=== PATIENT | female | born 1990 | race African-American/Black ===

== ENCOUNTER 2020-08-12 15:49 | Observation (INO) ==
[2020-08-12] MEDS ORDERED: amLODIPine 5 MG TABLET PO STA (16:35)
[2020-08-12] MEDS ORDERED: ENOXAPARIN 30 MG/0.3 ML SYRINGE SUBCUT STA (18:29)
[2020-08-12] MEDS ORDERED: ENOXAPARIN 120 MG/0.8 ML SYRINGE SUBCUT STA (18:31)
[2020-08-12 19:29] LABS: PT Patient Result 10.9 SECS (9.8-11.9); Partial Thromboplastin Time 25.7 SECS (23.9-33.8)
[2020-08-12] MEDS ORDERED: HEPARIN DRIP 25,000 UNITS/500 ML PREMIX IV SCH (19:30)
[2020-08-12] MEDS ORDERED: MORPHINE 4 MG/1 ML VIAL IV PRN (19:52)
[2020-08-12] MEDS ORDERED: NICOTINE 21 MG/24 HR PATCH TRANSDERM PRN (19:52)
[2020-08-12] MEDS ORDERED: DEXTROSE 50% 25 GM/50 ML VIAL IV PRN ×2 (19:52)
[2020-08-12] MEDS ORDERED: ZALEPLON 5 MG CAPSULE PO PRN (19:52)
[2020-08-12] MEDS ORDERED: diphenhydrAMINE CAP 25 MG CAPSULE PO PRN (19:52)
[2020-08-12] MEDS ORDERED: ACETAMINOPHEN 325 MG TABLET PO PRN (19:52)
[2020-08-12] MEDS ORDERED: ONDANSETRON 4 MG/2 ML VIAL IV PRN (19:52)
[2020-08-12] MEDS ORDERED: hydrALAZINE 20 MG/1 ML VIAL IV PRN (19:52)
[2020-08-12] MEDS ORDERED: SIMETHICONE CHEW 125 MG TABLET PO PRN (19:52)
[2020-08-12] MEDS ORDERED: guaiFENesin/DM ER 600-30 MG TABLET PO PRN (19:52)
[2020-08-12] MEDS ORDERED: BISACODYL 5 MG TABLET PO PRN (19:52)
[2020-08-12] MEDS ORDERED: ALUMINUM/MAGNES/SIMETH MAX STR 30 ML UDCUP PO PRN (19:52)
[2020-08-12] MEDS ORDERED: GLUCAGON 1 MG VIAL IM PRN ×2 (19:52)
[2020-08-12] MEDS: HEPARIN DRIP 25,000 UNITS/500 ML PREMIX IV SCH (22:10)
[2020-08-12] MEDS: INSULIN LISPRO 100 UNIT/ML SUBCUT SCH (22:32)
[2020-08-13] MEDS: ALBUTEROL 2.5 MG/3 ML NEB RESP TX SCH ×4 (02:16→19:15)
[2020-08-13 04:47] LABS: Basophils % 0.4 % (0.0-0.8); Eosinophils # 0.1 10*3/uL (0.0-0.87); Eosinophils % 1.8 % (0.00-10.9); Hematocrit 40.8 VOL% (35.7-47.0); Hemoglobin 13.2 GM/DL (12.0-16.0); Immature Granulocytes % 0.4 %; Immature Granulocytes Absolute 0.03 #; Lymphocytes # 3.3 10*3/uL (1.4-4.0); Lymphocytes % 44.7 % (21.3-54.2); Mean Corpuscular HGB Conc 32.4 GM/DL (32-36); Mean Corpuscular Volume 75.6 FL (87-102); Mean Platelet Volume 10.3 FL (9.6-12.0); Monocytes % 8.9 % (1.7-12.7); Neutrophils % 43.8 % (38.7-73.9); Platelet Count 281 T/CUMM (130-400); White Blood Count 7.4 T/CUMM (4-12)
[2020-08-13 04:59] LABS: INR 1.1; PT Patient Result 11.3 SECS (9.8-11.9); Partial Thromboplastin Time 73.8 SECS (23.9-33.8)
[2020-08-13 05:10] LABS: Calcium 9.4 MG/DL (8.5-10.1); Osmolality,Calculated 273.8 MOS/KG (273-304)
[2020-08-13] MEDS: HEPARIN DRIP 25,000 UNITS/500 ML PREMIX IV SCH ×3 (06:26→23:36)
[2020-08-13 09:29] LABS: Troponin I 0.171 NG/ML (0.00-0.045)
[2020-08-13] MEDS: INSULIN LISPRO 100 UNIT/ML SUBCUT SCH ×4 (10:44→20:26)
[2020-08-13] MEDS: carvediloL 3.125 MG TABLET PO SCH ×2 (10:57→20:25)
[2020-08-13] MEDS: PANTOPRAZOLE 40 MG TABLET PO SCH (10:57)
[2020-08-13] MEDS: lisinopriL 10 MG TABLET PO SCH (10:57)
[2020-08-13 12:07] LABS: Troponin I 0.173 NG/ML (0.00-0.045)
[2020-08-13 14:27] LABS: Troponin I 0.144 NG/ML (0.00-0.045)
[2020-08-14] MEDS: ALBUTEROL 2.5 MG/3 ML NEB RESP TX SCH ×2 (01:31→07:15)
[2020-08-14 04:35] LABS: Basophils % 0.4 % (0.0-0.8); Eosinophils # 0.2 10*3/uL (0.0-0.87); Hematocrit 39.5 VOL% (35.7-47.0); Hemoglobin 12.8 GM/DL (12.0-16.0); Immature Granulocytes % 0.3 %; Immature Granulocytes Absolute 0.02 #; Lymphocytes # 3.6 10*3/uL (1.4-4.0); Lymphocytes % 45.8 % (21.3-54.2); Mean Corpuscular HGB Conc 32.4 GM/DL (32-36); Mean Corpuscular Volume 76.3 FL (87-102); Mean Platelet Volume 9.7 FL (9.6-12.0); Monocytes % 9.3 % (1.7-12.7); Neutrophils % 42.2 % (38.7-73.9); Platelet Count 288 T/CUMM (130-400); Red Blood Count 5.18 MC/CUMM (3.8-5.5); Red Cell Distribution Width 14.1 % (9.3-17.3); White Blood Count 7.9 T/CUMM (4-12)
[2020-08-14 04:54] LABS: Calcium 9.1 MG/DL (8.5-10.1); Osmolality,Calculated 277.7 MOS/KG (273-304)
[2020-08-14 04:57] LABS: Risk Ratio 3.24; VLDL CHOLESTEROL 30.8 MG/DL
[2020-08-14] MEDS: INSULIN LISPRO 100 UNIT/ML SUBCUT SCH ×2 (07:30→13:07)
[2020-08-14 09:10] LABS: INR 1.1; PT Patient Result 11.4 SECS (9.8-11.9); Partial Thromboplastin Time 86.2 SECS (23.9-33.8)
[2020-08-14] MEDS ORDERED: APIXABAN 5 MG TABLET PO SCH (09:30)
[2020-08-14] MEDS: PANTOPRAZOLE 40 MG TABLET PO SCH (09:51)
[2020-08-14] MEDS: carvediloL 3.125 MG TABLET PO SCH (09:52)
[2020-08-14] MEDS: lisinopriL 10 MG TABLET PO SCH (09:52)
[2020-08-14 13:01] VITALS: BP 141/94
[2020-08-15 12:06] LABS: Protein C Activity Plasma 119 % (70 - 150)
[2020-08-15 18:01] LABS: Protein S Activity Plasma 166 % (50 - 160)
[2020-08-17 16:36] LABS: F5DNA Reviewed By SEE COMMENTS; Factor V Leiden (R506Q) Mutati Negative (Negative); PTNT Reviewed By SEE COMMENTS
== END 2020-08-14 12:20 | disposition home or self-care (01) ==
LOC: N.ED 15:49 → N.EDINP 15:49 → SUATTDRO 19:52 → N.TELES 20:19
PROVIDERS: ADMIT Internal Medicine; ATTEND Internal Medicine